=== PATIENT | female | born 1935 | race Caucasian/White ===

== ENCOUNTER 2018-04-15 14:58 | Emergency (ER) | payer MEDICARE, OTHER ==
[~2018-04-15 14:58] MED LIST: METF10004 PO; PREG50 PO; ROSU20TA PO; TRAN1TBM4 PO
[2018-04-15] MEDS ORDERED: HYDROCODONE/ACETAMINOPHEN 5/325 MG TAB ONE (17:02)
== END 2018-04-15 19:12 | disposition home or self-care (01) ==
LOC: EDH 14:58
DX: M51.36 Other intervertebral disc degeneration, lumbar region (principal); R51 Headache; I10 Essential (primary) hypertension; E11.9 Type 2 diabetes mellitus without complications; Z90.49 Acquired absence of other specified parts of digestive tract; Z90.710 Acquired absence of both cervix and uterus
CPT/HCPCS: 72131

== ENCOUNTER → 2018-08-15 | Outpatient (CLI) | payer OTHER ==
[~2018-08-15] MED LIST changes: +METF-446 PO; -METF10004 PO
== END | disposition home or self-care (01) ==
LOC: RAH 13:09
PROVIDERS: ATTEND Internal Medicine Nephrology
DX: N28.1 Cyst of kidney, acquired (principal)
CPT/HCPCS: 76770

== ENCOUNTER → 2018-12-31 | Outpatient (CLI) | payer OTHER ==
[2018-12-31 12:32] LABS: CREATININE 0.5 mg/dL (0.5-1.5)
== END | disposition home or self-care (01) ==
LOC: LAB 11:38
PROVIDERS: ATTEND Internal Medicine Gastroenterology
DX: R10.32 Left lower quadrant pain (principal)
CPT/HCPCS: 36415; 82565; 84520

== ENCOUNTER → 2019-01-10 | Outpatient (CLI) | payer OTHER ==
[~2019-01-10] MED LIST changes: +IOHEXOL 350 MG/ML 100ML INFUS..BTL IV ONE
== END | disposition home or self-care (01) ==
LOC: OIH 09:27
PROVIDERS: ATTEND Internal Medicine Gastroenterology
DX: K57.30 Diverticulosis of large intestine without perforation or abscess without bleeding (principal); K76.0 Fatty (change of) liver, not elsewhere classified; Z90.49 Acquired absence of other specified parts of digestive tract
CPT/HCPCS: 74178; Q9967

== ENCOUNTER 2019-02-25 16:44 | Emergency (ER) | payer OTHER ==
[~2019-02-25 16:44] MED LIST changes: -IOHEXOL 350 MG/ML 100ML INFUS..BTL IV ONE; -ROSU20TA PO; +ROSU20TA23 PO
== END 2019-02-25 19:35 | disposition home or self-care (01) ==
LOC: EDH 16:44
DX: S21.112A Laceration without foreign body of left front wall of thorax without penetration into thoracic cavity, initial encounter (principal); I10 Essential (primary) hypertension; E11.40 Type 2 diabetes mellitus with diabetic neuropathy, unspecified; Z90.49 Acquired absence of other specified parts of digestive tract; Z88.6 Allergy status to analgesic agent; Z88.7 Allergy status to serum and vaccine; Z90.710 Acquired absence of both cervix and uterus; V69.49XA Driver of heavy transport vehicle injured in collision with other motor vehicles in traffic accident, initial encounter; Y93.89 Activity, other specified; Y92.89 Other specified places as the place of occurrence of the external cause; Y99.8 Other external cause status
CPT/HCPCS: 71101

== ENCOUNTER → 2019-07-22 | Outpatient (CLI) | payer OTHER | END | disposition home or self-care (01) | LOC: RAH 06:44 | PROVIDERS: ATTEND Internal Medicine Gastroenterology | DX: K30 Functional dyspepsia (principal) | CPT/HCPCS: 78264; A9541 ==

== ENCOUNTER 2019-10-16 18:16 | Emergency (ER) | payer OTHER ==
[2019-10-16] MEDS ORDERED: LABETALOL 20 MG/4 ML DISP.SYRIN IV ONE (18:52)
[2019-10-16 19:26] LABS: BASOPHILS % (AUTO) 0.3 % (0.0-5.0); EOSINOPHILS % (AUTO) 2.8 % (0.0-8.0); HEMATOCRIT 38.8 % (36-48); LYMPHOCYTES % (AUTO) 14.8 % (21.0-51.0); MEAN CORPUSCULAR HEMOGLOBIN 25.8 pg (27.0-33.0); MEAN CORPUSCULAR HGB CONC 30.4 g/dL (32.0-36.0); MEAN CORPUSCULAR VOLUME 84.9 fL (79-99); MONOCYTES % (AUTO) 6.8 % (3.0-13.0); PLATELET COUNT (AUTO) 216 K/uL (130-400); RED BLOOD CELL COUNT(AUTO) 4.57 MIL/uL (4.00-5.50); WHITE BLOOD COUNT (AUTO) 8.7 K/uL (4.8-10.8)
[2019-10-16 19:36] LABS: CREATININE 0.7 mg/dL (0.5-1.5); POTASSIUM 3.2 mmol/L (3.5-5.1)
[2019-10-16 19:39] LABS: INR 0.94 (0.85-1.15); PROTHROMBIN TIME 9.9 SEC (9.6-11.6)
[2019-10-16 19:41] LABS: ALBUMIN 3.6 g/dL (3.5-5.0); BILIRUBIN,TOTAL 0.5 mg/dL (0.2-1.0); TOTAL PROTEIN, SERUM 7.4 g/dL (6.0-8.3)
== END 2019-10-16 20:58 | disposition home or self-care (01) ==
LOC: EDH 18:16
DX: I16.0 Hypertensive urgency (principal); I10 Essential (primary) hypertension; R11.10 Vomiting, unspecified; E11.40 Type 2 diabetes mellitus with diabetic neuropathy, unspecified; Z88.6 Allergy status to analgesic agent; Z88.7 Allergy status to serum and vaccine
CPT/HCPCS: 36415; 70450; 80053; 82550; 84484; 85025; 85610; 85730; 93005; 96374

== ENCOUNTER 2019-10-17 22:17 | Emergency (ER) | payer OTHER ==
[2019-10-17 22:53] LABS: BASOPHILS % (AUTO) 0.4 % (0.0-5.0); EOSINOPHILS % (AUTO) 3.4 % (0.0-8.0); HEMATOCRIT 38.3 % (36-48); LYMPHOCYTES % (AUTO) 16.1 % (21.0-51.0); MEAN CORPUSCULAR HEMOGLOBIN 25.8 pg (27.0-33.0); MEAN CORPUSCULAR HGB CONC 31.1 g/dL (32.0-36.0); MEAN CORPUSCULAR VOLUME 82.9 fL (79-99); MONOCYTES % (AUTO) 6.3 % (3.0-13.0); NEUTROPHILS % (AUTO) 73.4 % (40.0-77.0); PLATELET COUNT (AUTO) 226 K/uL (130-400); RED BLOOD CELL COUNT(AUTO) 4.62 MIL/uL (4.00-5.50); RED CELL DISTRIBUTION WIDTH 14.8 % (11.0-15.5); WHITE BLOOD COUNT (AUTO) 7.4 K/uL (4.8-10.8)
[2019-10-17] MEDS ORDERED: ONDANSETRON HCL 4 MG/2 ML VIAL ONE (23:03)
[2019-10-17 23:04] LABS: CREATININE 0.7 mg/dL (0.5-1.5); POTASSIUM 3.4 mmol/L (3.5-5.1)
[2019-10-17] MEDS ORDERED: ACETAMINOPHEN EXTRA STRENGTH 500 MG TABLET ONE (23:04)
[2019-10-17 23:09] LABS: ALBUMIN 3.7 g/dL (3.5-5.0); BILIRUBIN,TOTAL 0.7 mg/dL (0.2-1.0); TOTAL PROTEIN, SERUM 7.5 g/dL (6.0-8.3)
[2019-10-17] MEDS ORDERED: CLONIDINE HCL 0.1 MG TABLET ONE (23:10)
== END 2019-10-18 01:41 | disposition home or self-care (01) ==
LOC: EDH 22:17
DX: I10 Essential (primary) hypertension (principal); R51 Headache; R11.2 Nausea with vomiting, unspecified; E11.40 Type 2 diabetes mellitus with diabetic neuropathy, unspecified; Z88.6 Allergy status to analgesic agent; Z88.7 Allergy status to serum and vaccine; Z90.49 Acquired absence of other specified parts of digestive tract; Z90.710 Acquired absence of both cervix and uterus
CPT/HCPCS: 36415; 70450; 80053; 84484; 85025; 93005; 96374; 99284; J2405

== ENCOUNTER 2021-02-04 13:32 | Inpatient (IN) | payer MEDICARE, OTHER ==
[~2021-02-04] VITALS: Ht 172.7 cm; Wt 96.4 kg
[2021-02-04] MEDS ORDERED: 0.9%NACL 1000ML 1,000 ML IV ONE ×3 (14:12→18:11)
[2021-02-04] MEDS ORDERED: ONDANSETRON 4MG INJ ONE (14:12)
[2021-02-04 14:29] LABS: BASOPHILS % (AUTO) 0.3 % (0.0-5.0); EOSINOPHILS % (AUTO) 0.2 % (0.0-8.0); HEMATOCRIT 45.6 % (36-48); LYMPHOCYTES % (AUTO) 5.4 % (21.0-51.0); MEAN CORPUSCULAR HEMOGLOBIN 27.3 pg (27.0-33.0); MEAN CORPUSCULAR HGB CONC 30.5 g/dL (32.0-36.0); MEAN CORPUSCULAR VOLUME 89.4 fL (79-99); NEUTROPHILS % (AUTO) 86.6 % (40.0-77.0); PLATELET COUNT (AUTO) 296 K/uL (130-400); RED CELL DISTRIBUTION WIDTH 14.2 % (11.0-15.5); WHITE BLOOD COUNT (AUTO) 25.9 K/uL (4.8-10.8)
[2021-02-04 14:51] LABS: B-TYPE NATRIURETIC PEPTIDE 71 pg/mL (0-100)
[2021-02-04 14:58] LABS: CREATININE 1.4 mg/dL (0.5-1.5); POTASSIUM 4.5 mmol/L (3.5-5.1)
[2021-02-04 15:08] LABS: BILIRUBIN,TOTAL 0.6 mg/dL (0.2-1.0); TOTAL PROTEIN, SERUM 7.8 g/dL (6.0-8.3)
[2021-02-04] MEDS ORDERED: ZOSYN 3.375GM+NS 50ML 50 ML IV ONE (15:08)
[2021-02-04 15:14] LABS: APPEARANCE,URINE CLOUDY (CLEAR); BILIRUBIN,URINE SMALL (NEGATIVE); COLOR,URINE YELLOW (YELLOW); GLUCOSE, URINE (UA) 100 mg/dL (NEGATIVE); KETONES,URINE 5 mg/dL (NEGATIVE); LEUKOCYTE ESTERASE ,URINE TRACE (NEGATIVE); NITRATE,URINE NEGATIVE (NEGATIVE); OCCULT BLOOD,URINE TRACE-INTACT (NEGATIVE); PROTEIN,URINE >=300 mg/dL (NEGATIVE); UROBILINOGEN,URINE 0.2 mg/dL (0.2-1.0)
[2021-02-04] MEDS ORDERED: IOHEXOL-350 75 ML VIAL IV ONE (15:14)
[2021-02-04 15:18] LABS: BACTERIA,URINE Moderate /HPF (None Seen)
[2021-02-04 15:20] LABS: SQUAMOUS EPITHELIAL CELL,UR Few /HPF (0-2); TRANSITIONAL EPI CELLS,URINE Rare /HPF (None Seen)
[2021-02-04] MEDS ORDERED: METRONIDAZOLE 500MG/100ML BAG 0 ML ONE (17:17)
[2021-02-04] MEDS ORDERED: METRONIDAZOLE 500 MG TABLET ONE (17:18)
[2021-02-04] MEDS: 0.9%NACL 1000ML 1,000 ML IV SCH (17:30)
[2021-02-04] MEDS ORDERED: POTASSIUM CHLORIDE 20MEQ/100ML 100 ML IV PRN ×2 (17:30)
[2021-02-04] MEDS ORDERED: MORPHINE 2 MG SYG IVP PRN (17:30)
[2021-02-04] MEDS ORDERED: POTASSIUM CHLORIDE 10% ELIXIR 20 MEQ/15 ML UDCUP PO PRN (17:30)
[2021-02-04] MEDS ORDERED: MAGNESIUM 2GM PREMIX 50ML 50 ML IV PRN (17:30)
[2021-02-04] MEDS ORDERED: ACETAMINOPHEN 325 MG TAB PO PRN (17:30)
[2021-02-04] MEDS ORDERED: GLUCAGON 1MG KIT 1 MG ML IM PRN (17:30)
[2021-02-04] MEDS ORDERED: ONDANSETRON 4MG INJ IVP PRN (17:30)
[2021-02-04] MEDS ORDERED: LABETALOL 20MG SYG IV PRN (17:30)
[2021-02-04] MEDS ORDERED: DEXTROSE 50%-WATER 50 ML DISP.SYRIN IV PRN (17:30)
[2021-02-04] MEDS: CEFTRIAXONE 1G VIAL IV SCH (17:30)
[2021-02-04] MEDS ORDERED: KCL 20 MEQ ERTAB PO PRN (17:30)
[2021-02-04] MEDS ORDERED: LIDOCAINE HCL-MPF 1% 2ML VIAL IV PRN ×2 (17:30)
[2021-02-04] MEDS ORDERED: CEFTRIAXONE 1G VIAL ONE (18:11)
[2021-02-04] MEDS ORDERED: MAGNESIUM 2GM PREMIX 50ML 50 ML IV ONE (20:49)
[2021-02-04] MEDS ORDERED: FAMOTIDINE 20MG VIAL IV ONE (20:50)
[2021-02-04] MEDS: METRONIDAZOLE 500MG/100ML BAG 100 ML IVPB SCH (22:00)
[2021-02-04 23:25] VITALS: BP 128/58
[2021-02-05] MEDS ORDERED: APIX5TAB PO (00:03)
[2021-02-05] MEDS ORDERED: CHLO25TA3 PO (00:03)
[2021-02-05] MEDS ORDERED: HYDR25TA PO (00:03)
[2021-02-05] MEDS ORDERED: MIRA25TA PO (00:03)
[2021-02-05] MEDS: 0.9%NACL 1000ML 1,000 ML IV SCH ×3 (03:30→23:30)
[2021-02-05 04:18] VITALS: BP 111/45
[2021-02-05 05:12] LABS: HEMATOCRIT 32.8 % (36-48); MEAN CORPUSCULAR HEMOGLOBIN 27.1 pg (27.0-33.0); MEAN CORPUSCULAR HGB CONC 31.1 g/dL (32.0-36.0); RED BLOOD CELL COUNT(AUTO) 3.77 MIL/uL (4.00-5.50); RED CELL DISTRIBUTION WIDTH 14.4 % (11.0-15.5); WHITE BLOOD COUNT (AUTO) 14.2 K/uL (4.8-10.8)
[2021-02-05] MEDS ORDERED: PROMETHAZINE HCL 25 MG/ML 1ML AMPULE IM PRN (05:30)
[2021-02-05 05:34] LABS: CREATININE 2.1 mg/dL (0.5-1.5); POTASSIUM 4.2 mmol/L (3.5-5.1)
[2021-02-05] MEDS: METRONIDAZOLE 500MG/100ML BAG 100 ML IVPB SCH ×3 (05:46→20:22)
[2021-02-05] MEDS: METFORMIN HCL 500 MG TABLET PO SCH ×2 (08:00→17:00)
[2021-02-05 08:05] VITALS: BP 112/52
[2021-02-05] MEDS: **HM** CHLORTHALIDONE 25MG PO SCH (09:00)
[2021-02-05] MEDS: **HM** MYRBETRIQ 25MG PO SCH (09:00)
[2021-02-05] MEDS: TARKA PO SCH (09:00)
[2021-02-05] MEDS ORDERED: HYDROCHLOROTHIAZIDE 25 MG TABLET PO SCH (09:00)
[2021-02-05] MEDS: APIXABAN 5 MG TABLET PO SCH ×2 (09:00→20:20)
[2021-02-05] MEDS: HYDROCHLOROTHIAZIDE 25 MG TABLET PO SCH (09:00)
[2021-02-05] MEDS: PREGABALIN 25 MG CAP PO SCH ×6 (09:00→20:24)
[2021-02-05] MEDS ORDERED: APIXABAN 5 MG TABLET PO SCH (09:00)
[2021-02-05] MEDS: FAMOTIDINE 20MG VIAL IV SCH (09:09)
[2021-02-05 11:27] VITALS: BP 132/58
[2021-02-05 16:02] VITALS: BP 131/54
[2021-02-05] MEDS: CEFTRIAXONE 1G VIAL IV SCH (18:16)
[2021-02-05 19:55] VITALS: BP 133/62
[2021-02-05 23:55] VITALS: BP 125/53
[2021-02-06 04:00] VITALS: BP 132/68
[2021-02-06 05:09] LABS: HEMATOCRIT 31.7 % (36-48); MEAN CORPUSCULAR HGB CONC 30.9 g/dL (32.0-36.0); MEAN CORPUSCULAR VOLUME 87.3 fL (79-99); RED BLOOD CELL COUNT(AUTO) 3.63 MIL/uL (4.00-5.50); RED CELL DISTRIBUTION WIDTH 14.6 % (11.0-15.5); WHITE BLOOD COUNT (AUTO) 9.2 K/uL (4.8-10.8)
[2021-02-06 05:19] LABS: CREATININE 1.5 mg/dL (0.5-1.5); MAGNESIUM 2.1 mg/dL (1.80-2.40); POTASSIUM 3.9 mmol/L (3.5-5.1)
[2021-02-06] MEDS: METRONIDAZOLE 500MG/100ML BAG 100 ML IVPB SCH ×2 (05:26→13:57)
[2021-02-06] MEDS: METFORMIN HCL 500 MG TABLET PO SCH (08:00)
[2021-02-06 08:01] VITALS: BP 133/58
[2021-02-06] MEDS: **HM** CHLORTHALIDONE 25MG PO SCH (08:51)
[2021-02-06] MEDS: APIXABAN 5 MG TABLET PO SCH (08:51)
[2021-02-06] MEDS: HYDROCHLOROTHIAZIDE 25 MG TABLET PO SCH (08:52)
[2021-02-06] MEDS: PREGABALIN 25 MG CAP PO SCH ×4 (08:52→13:50)
[2021-02-06] MEDS: **HM** MYRBETRIQ 25MG PO SCH (08:52)
[2021-02-06] MEDS: TARKA PO SCH (08:52)
[2021-02-06] MEDS ORDERED: NITROFURANTOIN MONOHYD/M-CRYST 100 MG CAPSULE PO SCH (09:00)
[2021-02-06] MEDS: FAMOTIDINE 20MG VIAL IV SCH (09:06)
[2021-02-06] MEDS: 0.9%NACL 1000ML 1,000 ML IV SCH (09:07)
[2021-02-06 11:09] VITALS: BP 138/83
[2021-02-06] MEDS ORDERED: METR500T PO (13:15)
[2021-02-06] MEDS ORDERED: NITR100C4 PO (13:15)
[2021-02-09] MEDS ORDERED: LEVO500T90 PO (10:32)
== END 2021-02-06 16:15 | disposition home or self-care (01) | DRG 872 ==
LOC: EDH 13:32 → EDHIP 17:13 → 3AH 22:55
PROVIDERS: ADMIT Internal Medicine; ATTEND Internal Medicine
DX: A41.9 Sepsis, unspecified organism (principal); N39.0 Urinary tract infection, site not specified; K57.32 Diverticulitis of large intestine without perforation or abscess without bleeding; D17.5 Benign lipomatous neoplasm of intra-abdominal organs; E66.9 Obesity, unspecified; I10 Essential (primary) hypertension; I44.0 Atrioventricular block, first degree; B96.20 Unspecified Escherichia coli [E. coli] as the cause of diseases classified elsewhere; Z20.822 Contact with and (suspected) exposure to COVID-19; E11.40 Type 2 diabetes mellitus with diabetic neuropathy, unspecified; Z68.32 Body mass index [BMI] 32.0-32.9, adult; Z79.01 Long term (current) use of anticoagulants; Z79.4 Long term (current) use of insulin; Z79.899 Other long term (current) drug therapy; Z86.718 Personal history of other venous thrombosis and embolism; Z90.710 Acquired absence of both cervix and uterus; Z90.49 Acquired absence of other specified parts of digestive tract; Z88.5 Allergy status to narcotic agent; Z88.7 Allergy status to serum and vaccine
CPT/HCPCS: 36415; 71045; 74177; 80048; 80053; 81001; 82948; 83605; 83690; 83735; 83880; 84145; 84484; 85025; 85027; 87040; 87077; 87088; 87186; 87426; 93005; G0378; J0696; J2405; J2543; J3475; J3490; J7030; Q9967; U0003

== ENCOUNTER 2021-02-07 17:51 | Observation (INO) | payer MEDICARE ==
[~2021-02-07] VITALS: Ht 175.3 cm; Wt 95.4 kg
[~2021-02-07 17:51] MED LIST changes: +APIX5TAB PO; +CHLO25TA3 PO; +METR500T PO; +MIRA25TA PO; +NITR100C4 PO; -ROSU20TA23 PO
[2021-02-07 18:41] LABS: BASOPHILS % (AUTO) 0.2 % (0.0-5.0); EOSINOPHILS % (AUTO) 1.7 % (0.0-8.0); HEMATOCRIT 35.3 % (36-48); LYMPHOCYTES % (AUTO) 5.3 % (21.0-51.0); MEAN CORPUSCULAR HEMOGLOBIN 26.7 pg (27.0-33.0); MEAN CORPUSCULAR HGB CONC 30.9 g/dL (32.0-36.0); MEAN CORPUSCULAR VOLUME 86.5 fL (79-99); MONOCYTES % (AUTO) 6.2 % (3.0-13.0); NEUTROPHILS % (AUTO) 86.1 % (40.0-77.0); PLATELET COUNT (AUTO) 180 K/uL (130-400); RED BLOOD CELL COUNT(AUTO) 4.08 MIL/uL (4.00-5.50); WHITE BLOOD COUNT (AUTO) 8.6 K/uL (4.8-10.8)
[2021-02-07 18:51] LABS: CREATININE 1.1 mg/dL (0.5-1.5); POTASSIUM 4.3 mmol/L (3.5-5.1)
[2021-02-07 19:03] LABS: ALBUMIN 3.4 g/dL (3.5-5.0); BILIRUBIN,TOTAL 0.5 mg/dL (0.2-1.0); TOTAL PROTEIN, SERUM 7.1 g/dL (6.0-8.3)
[2021-02-07 19:06] LABS: APPEARANCE,URINE Clear (CLEAR); BILIRUBIN,URINE Negative (NEGATIVE); COLOR,URINE Yellow (YELLOW); GLUCOSE, URINE (UA) Negative (NEGATIVE); KETONES,URINE 15 mg/dL (NEGATIVE); LEUKOCYTE ESTERASE ,URINE Trace (NEGATIVE); NITRATE,URINE Negative (NEGATIVE); OCCULT BLOOD,URINE Negative (NEGATIVE); PH,URINE 6.5 (5.0-8.0); PROTEIN,URINE Trace mg/dL (NEGATIVE); UROBILINOGEN,URINE 0.2 mg/dL (0.2-1.0)
[2021-02-07] MEDS ORDERED: ACETAMINOPHEN EXTRA STRENGTH 500 MG TABLET ONE (19:17)
[2021-02-07 19:19] LABS: BACTERIA,URINE Rare /HPF (None Seen); RBC,URINE 0-1 /HPF (0-1); WBC,URINE 0-1 /HPF (0-1)
[2021-02-07 19:20] LABS: B-TYPE NATRIURETIC PEPTIDE 179 pg/mL (0-100)
[2021-02-07 19:20] LABS: ABG BASE EXCESS 1.9 mmol/L (-2.0-3.0); ABG HCO3 27.1 mmol/L (21.0-28.0); ABG PCO2 44 mmHg (32-45)
[2021-02-07 19:20] LABS: SQUAMOUS EPITHELIAL CELL,UR Few /HPF (0-2)
[2021-02-07] MEDS ORDERED: CEFTRIAXONE SODIUM 1 GM ONE (19:52)
[2021-02-07] MEDS ORDERED: AZITHROMYCIN 250 MG TABLET PO ONE (19:52)
[2021-02-07] MEDS: CEFTRIAXONE SODIUM 1 GM IVP SCH (21:15)
[2021-02-07] MEDS ORDERED: GUAIFENESIN-DM 200/20 MG 10 ML PO PRN (21:45)
[2021-02-07] MEDS ORDERED: ONDANSETRON HCL 4 MG/2 ML VIAL IV PRN (21:45)
[2021-02-07] MEDS ORDERED: BENZONATATE 100 MG CAPSULE PO PRN (21:45)
[2021-02-07] MEDS: METHYLPREDNISOLONE SOD SUCC 125MG/2ML VIAL IV SCH (21:45)
[2021-02-07] MEDS ORDERED: LACTULOSE 20 GM/30 ML UDCUP PO PRN (21:45)
[2021-02-07] MEDS ORDERED: ACETAMINOPHEN 325 MG TAB PO PRN (21:45)
[2021-02-07] MEDS ORDERED: NITROGLYCERIN 0.4 MG SL TAB SL PRN (21:45)
[2021-02-07] MEDS: METHYLPREDNISOLONE SOD SUCC 125MG/2ML VIAL IVP SCH (21:45)
[2021-02-07] MEDS ORDERED: IOHEXOL-350 75 ML VIAL IV ONE (22:25)
[2021-02-08] VITALS: BP 147/86
[2021-02-08] MEDS: ALBUTEROL SULFATE 0.083% 2.5 MG/3 ML INH IH SCH ×5 (00:09→23:34)
[2021-02-08] MEDS: IPRATROPIUM 0.5 MG/2.5 ML INH IH SCH ×5 (00:09→23:34)
[2021-02-08] MEDS: ACETAMINOPHEN 325 MG TAB PO PRN ×2 (01:09→14:09)
[2021-02-08 04:00] VITALS: BP 139/88
[2021-02-08 04:45] LABS: BASOPHILS % (AUTO) 0.2 % (0.0-5.0); EOSINOPHILS % (AUTO) 1.4 % (0.0-8.0); HEMATOCRIT 36.7 % (36-48); LYMPHOCYTES % (AUTO) 9.1 % (21.0-51.0); MEAN CORPUSCULAR HEMOGLOBIN 26.7 pg (27.0-33.0); MEAN CORPUSCULAR HGB CONC 30.8 g/dL (32.0-36.0); MEAN CORPUSCULAR VOLUME 86.8 fL (79-99); MONOCYTES % (AUTO) 9.1 % (3.0-13.0); NEUTROPHILS % (AUTO) 79.6 % (40.0-77.0); PLATELET COUNT (AUTO) 204 K/uL (130-400); RED BLOOD CELL COUNT(AUTO) 4.23 MIL/uL (4.00-5.50); RED CELL DISTRIBUTION WIDTH 14.2 % (11.0-15.5); WHITE BLOOD COUNT (AUTO) 8.5 K/uL (4.8-10.8)
[2021-02-08 05:17] LABS: ALBUMIN 3.3 g/dL (3.5-5.0); BILIRUBIN,TOTAL 0.3 mg/dL (0.2-1.0); CREATININE 1.2 mg/dL (0.5-1.5); POTASSIUM 3.3 mmol/L (3.5-5.1); TOTAL PROTEIN, SERUM 7.2 g/dL (6.0-8.3)
[2021-02-08 05:38] LABS: CRP QUANTITATIVE 135.5 mg/L (0.00-9.0)
[2021-02-08] MEDS: ZOSYN 3.375GM+NS 50ML 50 ML IV SCH ×3 (06:41→21:53)
[2021-02-08] MEDS: INSULIN HUMULIN R 100 UNIT/ML 3ML SQ SCH ×4 (06:43→22:15)
[2021-02-08 07:12] VITALS: BP 138/72
[2021-02-08] MEDS: ASPIRIN 325 MG TABLET PO SCH (08:13)
[2021-02-08] MEDS: LORATADINE/PSEUDOEPHED 5/120 MG 1 EACH TAB.SR.12H PO SCH ×2 (08:13→21:53)
[2021-02-08] MEDS: APIXABAN 5 MG TABLET PO SCH ×2 (08:13→21:53)
[2021-02-08] MEDS: PREGABALIN 25 MG CAP PO SCH ×3 (08:13→21:54)
[2021-02-08] MEDS: FAMOTIDINE 20MG TAB 20 MG TAB PO SCH (08:14)
[2021-02-08] MEDS: CEFTRIAXONE SODIUM 1 GM IVP SCH ×2 (08:14→21:54)
[2021-02-08] MEDS ORDERED: ENOXAPARIN SODIUM 40 MG/0.4 ML SYRINGE SQ SCH (09:00)
[2021-02-08] MEDS ORDERED: TARKA PO SCH (09:00)
[2021-02-08] MEDS ORDERED: POTASSIUM CHLORIDE 20MEQ/100ML 100 ML IV PRN (09:30)
[2021-02-08] MEDS: **HM** CHLORTHALIDONE 25MG PO SCH (09:38)
[2021-02-08] MEDS: METHYLPREDNISOLONE SOD SUCC 125MG/2ML VIAL IV SCH ×2 (09:38→21:54)
[2021-02-08] MEDS: **HM** MYRBETRIQ 25MG PO SCH (09:38)
[2021-02-08] MEDS: POTASSIUM CHLORIDE 20 MEQ ERTAB PO PRN ×2 (09:55→12:12)
[2021-02-08 11:38] VITALS: BP 123/64
[2021-02-08] MEDS: METRONIDAZOLE 500 MG TABLET PO SCH ×2 (13:42→21:54)
[2021-02-08 15:05] LABS: ABG BASE EXCESS 1.9 mmol/L (-2.0-3.0); ABG HCO3 25.4 mmol/L (21.0-28.0); ABG OXYGEN SATURATION 96.2 % (95.0-99.0); ABG PCO2 36 mmHg (32-45)
[2021-02-08 16:29] VITALS: BP 128/73
[2021-02-08 20:00] VITALS: BP 138/64
[2021-02-08] MEDS ORDERED: AZITHROMYCIN 500MG+NS 250ML 250 ML IV SCH (20:00)
[2021-02-08] MEDS: METHYLPREDNISOLONE SOD SUCC 125MG/2ML VIAL IVP SCH (21:45)
[2021-02-08] MEDS: NITROFURANTOIN MONOHYD/M-CRYST 100 MG CAPSULE PO SCH (21:54)
[2021-02-08] MEDS: TARKA PO SCH (22:28)
[2021-02-09] VITALS: BP 144/79
[2021-02-09 03:49] LABS: BASOPHILS % (AUTO) 0.2 % (0.0-5.0); LYMPHOCYTES % (AUTO) 6.3 % (21.0-51.0); MEAN CORPUSCULAR HEMOGLOBIN 26.7 pg (27.0-33.0); MEAN CORPUSCULAR HGB CONC 31.5 g/dL (32.0-36.0); MEAN CORPUSCULAR VOLUME 84.8 fL (79-99); PLATELET COUNT (AUTO) 195 K/uL (130-400); RED BLOOD CELL COUNT(AUTO) 3.89 MIL/uL (4.00-5.50); WHITE BLOOD COUNT (AUTO) 6.6 K/uL (4.8-10.8)
[2021-02-09 04:00] VITALS: BP 141/72
[2021-02-09 04:04] LABS: ALBUMIN 3.2 g/dL (3.5-5.0); BILIRUBIN,TOTAL 0.3 mg/dL (0.2-1.0); CREATININE 1.3 mg/dL (0.5-1.5); CRP QUANTITATIVE 101.4 mg/L (0.00-9.0); POTASSIUM 3.3 mmol/L (3.5-5.1); TOTAL PROTEIN, SERUM 7.2 g/dL (6.0-8.3)
[2021-02-09] MEDS: ALBUTEROL SULFATE 0.083% 2.5 MG/3 ML INH IH SCH ×3 (06:00→18:00)
[2021-02-09] MEDS: IPRATROPIUM 0.5 MG/2.5 ML INH IH SCH ×3 (06:00→18:00)
[2021-02-09] MEDS: ZOSYN 3.375GM+NS 50ML 50 ML IV SCH ×3 (06:06→22:22)
[2021-02-09] MEDS: INSULIN HUMULIN R 100 UNIT/ML 3ML SQ SCH ×4 (06:24→21:00)
[2021-02-09 08:09] VITALS: BP 145/85
[2021-02-09] MEDS: METRONIDAZOLE 500 MG TABLET PO SCH ×3 (08:39→22:23)
[2021-02-09] MEDS: FAMOTIDINE 20MG TAB 20 MG TAB PO SCH (08:39)
[2021-02-09] MEDS: ASPIRIN 325 MG TABLET PO SCH (08:39)
[2021-02-09] MEDS: NITROFURANTOIN MONOHYD/M-CRYST 100 MG CAPSULE PO SCH ×2 (08:40→22:23)
[2021-02-09] MEDS: CEFTRIAXONE SODIUM 1 GM IVP SCH (08:40)
[2021-02-09] MEDS: APIXABAN 5 MG TABLET PO SCH ×2 (08:40→22:23)
[2021-02-09] MEDS: PREGABALIN 25 MG CAP PO SCH ×3 (08:40→22:23)
[2021-02-09] MEDS: **HM** MYRBETRIQ 25MG PO SCH (08:53)
[2021-02-09] MEDS: **HM** CHLORTHALIDONE 25MG PO SCH (08:54)
[2021-02-09] MEDS: LORATADINE/PSEUDOEPHED 5/120 MG 1 EACH TAB.SR.12H PO SCH ×2 (09:00→22:24)
[2021-02-09] MEDS: TARKA PO SCH (09:00)
[2021-02-09] MEDS: POTASSIUM CHLORIDE 10% ELIXIR 20 MEQ/15 ML UDCUP PO PRN ×2 (09:03→17:30)
[2021-02-09] MEDS ORDERED: METHYLPREDNISOLONE SOD SUCC 40MG/ML 1ML IVP SCH (09:45)
[2021-02-09] MEDS ORDERED: LEVO500T89 PO (10:32)
[2021-02-09 12:00] VITALS: BP 128/72
[2021-02-09 16:00] VITALS: BP 119/93
[2021-02-09 16:22] LABS: HEMATOCRIT 35.1 % (36-48)
[2021-02-09 19:33] VITALS: BP 149/73
[2021-02-09] MEDS ORDERED: METHYLPREDNISOLONE SOD SUCC 125MG/2ML VIAL IVP SCH (21:00)
[2021-02-09] MEDS: METHYLPREDNISOLONE SOD SUCC 125MG/2ML VIAL IVP SCH (21:45)
[2021-02-09 21:57] LABS: HEMATOCRIT 34.9 % (36-48)
[2021-02-09] MEDS: PANTOPRAZOLE SODIUM 40 MG TABLET.DR PO SCH (22:26)
[2021-02-10 00:10] VITALS: BP 154/78
[2021-02-10 04:25] LABS: BASOPHILS % (AUTO) 0.2 % (0.0-5.0); EOSINOPHILS % (AUTO) 0.1 % (0.0-8.0); HEMATOCRIT 36.4 % (36-48); LYMPHOCYTES % (AUTO) 11.1 % (21.0-51.0); MEAN CORPUSCULAR HEMOGLOBIN 26.8 pg (27.0-33.0); MEAN CORPUSCULAR HGB CONC 31.3 g/dL (32.0-36.0); MEAN CORPUSCULAR VOLUME 85.6 fL (79-99); MONOCYTES % (AUTO) 8.2 % (3.0-13.0); NEUTROPHILS % (AUTO) 79.3 % (40.0-77.0); PLATELET COUNT (AUTO) 228 K/uL (130-400); RED BLOOD CELL COUNT(AUTO) 4.25 MIL/uL (4.00-5.50); RED CELL DISTRIBUTION WIDTH 14.1 % (11.0-15.5)
[2021-02-10 04:45] VITALS: BP 171/86
[2021-02-10 04:45] LABS: ALBUMIN 3.4 g/dL (3.5-5.0); BILIRUBIN,TOTAL 0.4 mg/dL (0.2-1.0); CREATININE 1.1 mg/dL (0.5-1.5); POTASSIUM 4.1 mmol/L (3.5-5.1); TOTAL PROTEIN, SERUM 7.1 g/dL (6.0-8.3)
[2021-02-10] MEDS: IPRATROPIUM 0.5 MG/2.5 ML INH IH SCH ×3 (06:00→11:03)
[2021-02-10] MEDS: ALBUTEROL SULFATE 0.083% 2.5 MG/3 ML INH IH SCH ×3 (06:00→11:03)
[2021-02-10] MEDS: INSULIN HUMULIN R 100 UNIT/ML 3ML SQ SCH (06:29)
[2021-02-10] MEDS: ZOSYN 3.375GM+NS 50ML 50 ML IV SCH (06:31)
[2021-02-10 07:00] VITALS: BP 142/73
[2021-02-10] MEDS: LORATADINE/PSEUDOEPHED 5/120 MG 1 EACH TAB.SR.12H PO SCH (08:47)
[2021-02-10] MEDS: FAMOTIDINE 20MG TAB 20 MG TAB PO SCH (08:47)
[2021-02-10] MEDS: PANTOPRAZOLE SODIUM 40 MG TABLET.DR PO SCH (08:47)
[2021-02-10] MEDS: APIXABAN 5 MG TABLET PO SCH (08:47)
[2021-02-10] MEDS: PREGABALIN 25 MG CAP PO SCH (08:47)
[2021-02-10] MEDS: NITROFURANTOIN MONOHYD/M-CRYST 100 MG CAPSULE PO SCH (08:47)
[2021-02-10] MEDS: METRONIDAZOLE 500 MG TABLET PO SCH (08:47)
[2021-02-10] MEDS: **HM** CHLORTHALIDONE 25MG PO SCH (08:53)
[2021-02-10] MEDS: **HM** MYRBETRIQ 25MG PO SCH (08:54)
[2021-02-10] MEDS: TARKA PO SCH (08:55)
[2021-02-10 09:45] LABS: HEMATOCRIT 35.6 % (36-48)
[2021-02-10] MEDS ORDERED: PANT40TA55 PO (10:35)
== END 2021-02-10 12:23 | disposition home or self-care (01) ==
LOC: EDH 17:51 → EDHIP 20:03 → 2AH 22:11 → 4DH 02-09 18:32
PROVIDERS: ADMIT Internal Medicine Pulmonary Disease; ATTEND Internal Medicine Pulmonary Disease
DX: J96.01 Acute respiratory failure with hypoxia (principal); Z20.822 Contact with and (suspected) exposure to COVID-19; J18.9 Pneumonia, unspecified organism; J90 Pleural effusion, not elsewhere classified; N39.0 Urinary tract infection, site not specified; B96.20 Unspecified Escherichia coli [E. coli] as the cause of diseases classified elsewhere; E11.40 Type 2 diabetes mellitus with diabetic neuropathy, unspecified; I82.402 Acute embolism and thrombosis of unspecified deep veins of left lower extremity; I10 Essential (primary) hypertension; E66.9 Obesity, unspecified; K92.1 Melena; Z87.19 Personal history of other diseases of the digestive system; Z87.440 Personal history of urinary (tract) infections; Z90.710 Acquired absence of both cervix and uterus; Z90.49 Acquired absence of other specified parts of digestive tract; Z79.01 Long term (current) use of anticoagulants; Z79.84 Long term (current) use of oral hypoglycemic drugs; Z79.899 Other long term (current) drug therapy; Z88.5 Allergy status to narcotic agent; Z88.7 Allergy status to serum and vaccine; Z68.31 Body mass index [BMI] 31.0-31.9, adult
CPT/HCPCS: 36415 ×4; 36600 ×2; 71045; 71275; 80053 ×4; 81001; 82270; 82728 ×2; 82803 ×2; 82948 ×9; 83615 ×3; 83880; 84145; 84484 ×2; 85014 ×3; 85018 ×3; 85025 ×4; 85378 ×2; 86140 ×2; 87426; 93005; 94010; 94640 ×5; 94664; 94760 ×2; 96365; 96366 ×3; 96375; 96376 ×2; 99285; G0378 ×62; J0696 ×5; J2543 ×7; J2920; J2930 ×4; Q9967; U0003

== ENCOUNTER 2021-02-27 15:10 | Inpatient (IN) | payer MEDICARE ==
[~2021-02-27] VITALS: Ht 175.3 cm; Wt 93.0 kg
[~2021-02-27 15:10] MED LIST changes: +LEVO500T90 PO; -NITR100C4 PO; +PANT40TA55 PO
[2021-02-27] MEDS ORDERED: DIATR MEGLU/DIATRIZOATE SODIUM 30 ML BOTTLE ONE (15:51)
[2021-02-27 16:17] LABS: BASOPHILS % (AUTO) 0.1 % (0.0-5.0); EOSINOPHILS % (AUTO) 0.1 % (0.0-8.0); HEMATOCRIT 34.8 % (36-48); LYMPHOCYTES % (AUTO) 12.6 % (21.0-51.0); MEAN CORPUSCULAR HEMOGLOBIN 26.8 pg (27.0-33.0); MEAN CORPUSCULAR HGB CONC 30.7 g/dL (32.0-36.0); MONOCYTES % (AUTO) 8.8 % (3.0-13.0); NEUTROPHILS % (AUTO) 78.1 % (40.0-77.0); PLATELET COUNT (AUTO) 273 K/uL (130-400); RED CELL DISTRIBUTION WIDTH 14.6 % (11.0-15.5)
[2021-02-27 16:52] LABS: APPEARANCE,URINE Clear (CLEAR); BILIRUBIN,URINE Negative (NEGATIVE); COLOR,URINE Dark Yellow (YELLOW); GLUCOSE, URINE (UA) Negative (NEGATIVE); KETONES,URINE Negative (NEGATIVE); LEUKOCYTE ESTERASE ,URINE Trace (NEGATIVE); NITRATE,URINE Negative (NEGATIVE); OCCULT BLOOD,URINE Negative (NEGATIVE); PROTEIN,URINE Negative (NEGATIVE)
[2021-02-27 16:54] LABS: CREATININE 1.5 mg/dL (0.5-1.5); POTASSIUM 3.7 mmol/L (3.5-5.1)
[2021-02-27 16:58] LABS: BACTERIA,URINE Rare /HPF (None Seen); RBC,URINE 0-1 /HPF (0-1); SQUAMOUS EPITHELIAL CELL,UR Rare /HPF (0-2)
[2021-02-27 17:00] LABS: ALBUMIN 2.9 g/dL (3.5-5.0); BILIRUBIN,TOTAL 0.6 mg/dL (0.2-1.0); TOTAL PROTEIN, SERUM 6.4 g/dL (6.0-8.3)
[2021-02-27] MEDS ORDERED: LEVOFLOXACIN 500 MG/D5W 100 ML 100 ML ONE (19:09)
[2021-02-27] MEDS ORDERED: METRONIDAZOLE 500MG/100ML BAG 100 ML ONE (19:10)
[2021-02-27] MEDS ORDERED: 0.9%NACL 1000ML 1,000 ML IV ONE (19:11)
[2021-02-27] MEDS ORDERED: ACETAMINOPHEN 325 MG TAB PO PRN ×2 (20:45)
[2021-02-27] MEDS ORDERED: ONDANSETRON 4MG INJ IV PRN (20:45)
[2021-02-27] MEDS ORDERED: MORPHINE 2 MG SYG IV PRN (20:45)
[2021-02-27] MEDS: FAMOTIDINE 20MG VIAL IV SCH (21:00)
[2021-02-27] MEDS: METRONIDAZOLE 500 MG TABLET PO SCH (21:00)
[2021-02-27] MEDS: LEVOFLOXACIN 500 MG/D5W 100 ML 100 ML IV SCH (21:00)
[2021-02-27] MEDS: 0.9%NACL 1000ML 1,000 ML IV SCH (21:00)
[2021-02-27 21:05] LABS: HEMOGLOBIN A1C 7.1 % (4.0-6.0)
[2021-02-27 23:42] VITALS: BP 147/59
[2021-02-28 04:13] VITALS: BP 117/46
[2021-02-28] MEDS: 0.9%NACL 1000ML 1,000 ML IV SCH ×2 (06:20→17:00)
[2021-02-28 06:26] LABS: BASOPHILS % (AUTO) 0.2 % (0.0-5.0); EOSINOPHILS % (AUTO) 0.3 % (0.0-8.0); HEMATOCRIT 32.1 % (36-48); LYMPHOCYTES % (AUTO) 13.3 % (21.0-51.0); MEAN CORPUSCULAR HEMOGLOBIN 26.5 pg (27.0-33.0); MEAN CORPUSCULAR HGB CONC 30.5 g/dL (32.0-36.0); MEAN CORPUSCULAR VOLUME 86.8 fL (79-99); MONOCYTES % (AUTO) 8.7 % (3.0-13.0); NEUTROPHILS % (AUTO) 77.1 % (40.0-77.0); PLATELET COUNT (AUTO) 241 K/uL (130-400); RED CELL DISTRIBUTION WIDTH 14.6 % (11.0-15.5); WHITE BLOOD COUNT (AUTO) 12.3 K/uL (4.8-10.8)
[2021-02-28 08:00] VITALS: BP 126/57
[2021-02-28] MEDS: METRONIDAZOLE 500 MG TABLET PO SCH (09:00)
[2021-02-28] MEDS ORDERED: POTASSIUM CHLORIDE 10% ELIXIR 20 MEQ/15 ML UDCUP PO PRN (10:30)
[2021-02-28] MEDS ORDERED: POTASSIUM CHLORIDE 20MEQ/100ML 100 ML IV PRN ×2 (10:30)
[2021-02-28] MEDS ORDERED: MAGNESIUM 2GM PREMIX 50ML 50 ML IV PRN (10:30)
[2021-02-28] MEDS ORDERED: LIDOCAINE HCL-MPF 1% 2ML VIAL IV PRN ×2 (10:30)
[2021-02-28 12:00] VITALS: BP 131/66
[2021-02-28] MEDS: METRONIDAZOLE 500MG/100ML BAG 100 ML IVPB SCH ×2 (14:40→21:37)
[2021-02-28 16:00] VITALS: BP 135/59
[2021-02-28] MEDS ORDERED: PEG 3350/NA SULF,BICARB,CL/KCL 4000 ML SOLN PO ONE (17:30)
[2021-02-28 20:20] VITALS: BP 139/86
[2021-02-28] MEDS: FAMOTIDINE 20MG VIAL IV SCH ×2 (21:22→22:01)
[2021-02-28] MEDS: LEVOFLOXACIN 500 MG/D5W 100 ML 100 ML IV SCH (21:38)
[2021-03-01] VITALS (23 sets, daily range): BP systolic 104–176; BP diastolic 57–82
[2021-03-01 05:16] LABS: HEMATOCRIT 34.5 % (36-48); MEAN CORPUSCULAR HEMOGLOBIN 27.6 pg (27.0-33.0); MEAN CORPUSCULAR HGB CONC 31.3 g/dL (32.0-36.0); RED BLOOD CELL COUNT(AUTO) 3.92 MIL/uL (4.00-5.50); RED CELL DISTRIBUTION WIDTH 14.6 % (11.0-15.5); WHITE BLOOD COUNT (AUTO) 11.4 K/uL (4.8-10.8)
[2021-03-01 05:47] LABS: CREATININE 1.2 mg/dL (0.5-1.5); POTASSIUM 3.5 mmol/L (3.5-5.1)
[2021-03-01] MEDS: METRONIDAZOLE 500MG/100ML BAG 100 ML IVPB SCH ×3 (05:56→21:00)
[2021-03-01] MEDS: 0.9%NACL 1000ML 1,000 ML IV SCH ×3 (05:57→23:00)
[2021-03-01] MEDS ORDERED: PROPOFOL 10 MG/ML 20ML VIAL IV ONE (11:53)
[2021-03-01] MEDS ORDERED: LIDOCAINE HCL 1% 20 ML VIAL ONE (11:54)
[2021-03-01] MEDS: FAMOTIDINE 20MG VIAL IV SCH (21:04)
[2021-03-01] MEDS: KCL 20 MEQ ERTAB PO PRN ×2 (21:05→23:01)
[2021-03-01] MEDS ORDERED: PREGABALIN 25 MG CAP PO ONE (22:30)
[2021-03-02] MEDS: 0.9%NACL 1000ML 1,000 ML IV SCH (04:06)
[2021-03-02 04:08] VITALS: BP 133/49
[2021-03-02] MEDS: METRONIDAZOLE 500MG/100ML BAG 100 ML IVPB SCH ×3 (06:43→21:38)
[2021-03-02 07:55] VITALS: BP 144/69
[2021-03-02] MEDS: PREGABALIN 25 MG CAP PO SCH ×4 (08:37→20:33)
[2021-03-02] MEDS ORDERED: ***HM***Chlorthalidone 25 MG PO SCH (09:00)
[2021-03-02] MEDS ORDERED: CHLORTHALIDONE 25 MG PO SCH (09:00)
[2021-03-02] MEDS ORDERED: MIRABEGRON 25 MG PO SCH (09:00)
[2021-03-02] MEDS ORDERED: VERAPAMIL HCL PO SCH (09:00)
[2021-03-02] MEDS ORDERED: TRANDOLAPRIL PO SCH (09:00)
[2021-03-02 11:15] VITALS: BP 148/58
[2021-03-02 16:31] VITALS: BP 151/68
[2021-03-02 20:03] VITALS: BP 146/58
[2021-03-02] MEDS: LEVOFLOXACIN 500 MG/D5W 100 ML 100 ML IV SCH (20:30)
[2021-03-02] MEDS: KCL 20 MEQ ERTAB PO PRN ×2 (20:33→23:46)
[2021-03-02] MEDS: FAMOTIDINE 20MG VIAL IV SCH (20:33)
[2021-03-02 23:11] VITALS: BP 137/61
[2021-03-03 03:58] VITALS: BP 140/66
[2021-03-03] MEDS: METRONIDAZOLE 500MG/100ML BAG 100 ML IVPB SCH (06:48)
[2021-03-03 08:00] VITALS: BP 150/56
== END 2021-03-03 11:30 | disposition home or self-care (01) | DRG 392 ==
LOC: EDH 15:10 → EDHIP 20:42 → 3BH 23:30
PROVIDERS: ADMIT Internal Medicine Critical Care Medicine; ATTEND Internal Medicine Critical Care Medicine
PROC: 0DJD8ZZ Inspection of Lower Intestinal Tract, Via Natural or Artificial Opening Endoscopic (ICD-10-PCS; principal; 2021-03-01)
DX: K57.90 Diverticulosis of intestine, part unspecified, without perforation or abscess without bleeding (principal); K56.699 Other intestinal obstruction unspecified as to partial versus complete obstruction; K52.9 Noninfective gastroenteritis and colitis, unspecified; D64.9 Anemia, unspecified; E66.9 Obesity, unspecified; I12.9 Hypertensive chronic kidney disease with stage 1 through stage 4 chronic kidney disease, or unspecified chronic kidney disease; Z68.30 Body mass index [BMI] 30.0-30.9, adult; G62.9 Polyneuropathy, unspecified; N18.30 Chronic kidney disease, stage 3 unspecified; E11.22 Type 2 diabetes mellitus with diabetic chronic kidney disease; Z79.899 Other long term (current) drug therapy; Z90.710 Acquired absence of both cervix and uterus; Z90.49 Acquired absence of other specified parts of digestive tract; Z79.01 Long term (current) use of anticoagulants; Z79.84 Long term (current) use of oral hypoglycemic drugs; K63.9 Disease of intestine, unspecified
CPT/HCPCS: 36415; 45378; 71045; 74176; 74270; 80048; 80053; 81001; 82150; 83036; 83690; 84132; 84145; 85025; 85027; 87040; 87088; A4606; G0378; J1956; J2405; J2704; J3490; J7030; Q9963